=== PATIENT | male | born 1980 | race Two or more races ===

== ENCOUNTER 2024-06-07 22:50 | Emergency (ER) | payer OTHER ==
[~2024-06-07] VITALS: Ht 175.3 cm; Wt 84.5 kg
[2024-06-07] MEDS: LIDOCAINE 1% HCL (LOCAL ANESTH.) INJ 20ML MDV ID ONE (23:56)
[2024-06-08] MEDS: TETANUS-DIPTH-ACEL PERTUSSIS 0.5ML SYR Tdap IM ONE (00:41)
[2024-06-08 00:46] VITALS: BP 132/88; PULSE 78; RESP 18; TEMP 98; O2SAT 99
== END 2024-06-08 01:00 | disposition home or self-care (01) ==
LOC: ER 22:50
DX: S51.812A Laceration without foreign body of left forearm, initial encounter (principal); W18.09XA Striking against other object with subsequent fall, initial encounter; Y93.89 Activity, other specified; Y92.89 Other specified places as the place of occurrence of the external cause; Y99.8 Other external cause status
CPT/HCPCS: 12002; 90471; 90715; 99283; J2001